=== PATIENT | female | born 1975 | race Caucasian/White ===

== ENCOUNTER → 2022-10-18 15:03 | Outpatient (CLI) | payer MEDICAID, SELFPAY ==
[2022-10-18 12:46] LABS: Basophils % 0.8 % (0.1-2.0); Eosinophils # 0.1 K/mm3 (0.0-0.4); Eosinophils % 2.5 % (0.1-12.0); Hematocrit 45.2 % (37.0-47.0); Hemoglobin 14.4 g/dL (12.2-16.2); Lymphocytes # 0.9 K/mm3 (0.7-4.5); Lymphocytes % 20.4 % (10-50); Mean Corpuscular HGB Conc 31.9 g/dL (31.8-35.4); Mean Corpuscular Hemoglobin 30.4 pg (27.0-31.2); Mean Corpuscular Volume 95.4 fl (81-99); Mean Platelet Volume 8.4 fl (7.4-10.4); Monocytes # 0.3 K/mm3 (0.1-1.0); Monocytes % 5.6 % (1.7-9.3); Neutrophils # 3.2 K/mm3 (1.8-7.8); Neutrophils % 70.8 % (37.0-80.0); Platelet Count 223 K/mm3 (142-424); Red Blood Count 4.74 M/mm3 (4.20-5.40); Red Cell Distribution Width 14.3 % (11.5-17.5); White Blood Count 4.5 K/mm3 (4.8-10.8)
[2022-10-18 13:02] LABS: Alanine Aminotransferase 32 U/L (12-78); Albumin Level 3.9 g/dl (3.5-5.0); Albumin/Globulin Ratio 1.4 (1.1-1.8); Alkaline Phosphatase 80 U/L (38-126); Anion Gap 15.8 mEq/L (5-15); Aspartate Amino Transferase 30 U/L (14-36); Bilirubin,Total 0.3 mg/dl (0.2-1.3); Blood Urea Nitrogen 10 mg/dl (7-17); Carbon Dioxide 23 mmol/L (22.0-30.0); Chloride 107 mmol/L (98-107); Chol/HDL Ratio 2.6 (1-3.5); Cholesterol 181 mg/dl (140-200); Estimated Glomerular Filt Rate 108 ml/min (>60); GFR (African American) 130 ML/MIN (>60); Globulin 2.8 g/dL (1.3-3.2); Glucose 105 mg/dl (74-100); HDL Cholesterol 70 mg/dl (40-60); Potassium 3.8 mmoL/L (3.5-5.1); Sodium 142 mmol/L (136-145); Total Protein,Serum 6.7 g/dl (6.3-8.2); Triglycerides 203 mg/dl (30-150); VLDL Cholesterol 41 mg/dL (0-40)
[2022-10-18 13:12] LABS: Direct LDL Cholesterol 81.19 mg/dL (100-129)
[2022-10-18 13:20] LABS: 25-OH Vitamin D, Total 34.7 ng/mL (30-100)
[2022-10-18 13:21] LABS: T4 (Thyroxine) 6.8 ug/dl (5.53-11.0)
[2022-10-18 13:34] LABS: Thyroid Stimulating Hormone 0.46 uIU/mL (0.465-4.68)
== END ==
PROVIDERS: PCP Emergency Medicine; Visit Provider Emergency Medicine
DX: Z00.00 Encounter for general adult medical examination without abnormal findings (principal); Z79.899 Other long term (current) drug therapy
CPT/HCPCS: 80053; 80061; 82306; 84436; 84443; 85025

== ENCOUNTER → 2023-02-15 19:41 | Outpatient (CLI) | payer MEDICAID, SELFPAY ==
[2023-02-15 20:24] LABS: Amphetamine/Metha Screen,Urine Positive ng/ml (<1000); Barbiturates Screen,Urine Negative ng/ml (<200)
[2023-02-15 20:25] LABS: Cannabinoid Screen,Urine Positive ng/ml (<50)
[2023-02-15 20:26] LABS: Benzodiazepines Screen,Urine Negative ng/ml (<200); Cocaine Screen,Urine Negative ng/ml (<300)
[2023-02-15 20:27] LABS: Methadone Screen,Urine Negative ng/ml (<300); Opiate Screen,Urine Negative ng/ml (<300)
[2023-02-15 20:28] LABS: Phencyclidine Screen,Urine Negative ng/ml (<25)
== END ==
LOC: LAB.DROPOF 19:42
PROVIDERS: PCP Emergency Medicine; Visit Provider Emergency Medicine
DX: Z79.899 Other long term (current) drug therapy (principal)
CPT/HCPCS: 80305

== ENCOUNTER 2023-09-12 15:30 | Outpatient (CLI) | payer MEDICAID, SELFPAY ==
[2023-09-12 18:27] LABS: Basophils % 0.9 % (0.1-2.0); Eosinophils # 0.8 K/mm3 (0.0-0.4); Eosinophils % 15.2 % (0.1-12.0); Hematocrit 37.7 % (37.0-47.0); Hemoglobin 12.2 g/dL (12.2-16.2); Lymphocytes # 1.6 K/mm3 (0.7-4.5); Lymphocytes % 31.8 % (10-50); Mean Corpuscular HGB Conc 32.3 g/dL (31.8-35.4); Mean Corpuscular Hemoglobin 31.8 pg (27.0-31.2); Mean Corpuscular Volume 98.4 fl (81-99); Mean Platelet Volume 8.5 fl (7.4-10.4); Monocytes # 0.3 K/mm3 (0.1-1.0); Monocytes % 6.1 % (1.7-9.3); Neutrophils # 2.3 K/mm3 (1.8-7.8); Platelet Count 210 K/mm3 (142-424); Red Blood Count 3.83 M/mm3 (4.20-5.40); Red Cell Distribution Width 13.4 % (11.5-17.5)
[2023-09-12 18:48] LABS: Alanine Aminotransferase 28 U/L (12-78); Albumin Level 3.6 g/dl (3.5-5.0); Albumin/Globulin Ratio 1.3 (1.1-1.8); Alkaline Phosphatase 64 U/L (38-126); Anion Gap 10.1 mEq/L (5-15); Aspartate Amino Transferase 31 U/L (14-36); Bilirubin,Total 0.4 mg/dl (0.2-1.3); Blood Urea Nitrogen 16 mg/dl (7-17); Calcium 8.9 mg/dl (8.4-10.2); Carbon Dioxide 27 mmol/L (22.0-30.0); Chloride 107 mmol/L (98-107); Chol/HDL Ratio 3.4 (1-3.5); Cholesterol 141 mg/dl (140-200); Estimated Glomerular Filt Rate 108 ml/min (>60); GFR (African American) 130 ML/MIN (>60); Globulin 2.7 g/dL (1.3-3.2); Glucose 78 mg/dl (74-100); HDL Cholesterol 42 mg/dl (40-60); Potassium 4.1 mmoL/L (3.5-5.1); Sodium 140 mmol/L (136-145); Total Protein,Serum 6.3 g/dl (6.3-8.2); Triglycerides 120 mg/dl (30-150); VLDL Cholesterol 24 mg/dL (0-40)
[2023-09-12 18:59] LABS: C-Reactive Protein 2.7 mg/L (0-4); Direct LDL Cholesterol 77.16 mg/dL (100-129)
[2023-09-12 19:00] LABS: Erythrocyte Sedimentation Rate 13 mm/hr (0-20)
[2023-09-12 19:05] LABS: 25-OH Vitamin D, Total 45.5 ng/mL (30-100)
[2023-09-12 19:23] LABS: Thyroid Stimulating Hormone 1.93 uIU/mL (0.465-4.68)
[2023-09-12 19:59] LABS: Folate > 20.00 ng/mL; Vitamin B12 351 pg/mL (239-931)
[2023-09-12 20:04] LABS: Iron 71 ug/dL (37-170)
[2023-09-12 20:21] LABS: Total Iron Binding Capacity 292 ug/dL (265-497)
[2023-09-12 20:41] LABS: Ferritin 12.5 ng/ml (6.24-137)
[2023-09-14 12:18] LABS: HBsAg Screen Negative (Negative); HCV Ab Non Reactive (Non Reactive); HIV Screen 4th Generation wRfx Non Reactive (Non Reactive); Hep A Ab, IGM Negative (Negative); Hep B Core Ab, IgM Negative (Negative)
[2023-09-14 17:53] LABS: Peripheral Smear Review Scanned Result
== END 2023-09-12 23:59 | disposition home or self-care (01) ==
LOC: LAB.DROPOF 09-13 10:25
PROVIDERS: PCP Internal Medicine; Visit Provider Internal Medicine
DX: R53.83 Other fatigue (principal); B34.8 Other viral infections of unspecified site; F19.11 Other psychoactive substance abuse, in remission; R01.1 Cardiac murmur, unspecified; F17.210 Nicotine dependence, cigarettes, uncomplicated; Z11.4 Encounter for screening for human immunodeficiency virus [HIV]; Z79.899 Other long term (current) drug therapy
CPT/HCPCS: 80053; 80061; 80074; 82306; 82607; 82728; 82746; 83540; 83550; 84443; 85025; 85651; 86140; 86703; G0432

== ENCOUNTER 2023-10-09 13:12 | Emergency (ER) | payer MEDICAID, SELFPAY ==
[2023-10-09 13:13] VITALS: BP 92/48; PULSE 76; RESP 16; TEMP 36.7; O2SAT 95; BMI 25.1
[2023-10-09 13:28] LABS: Microscopic, Urine URINE MICROSCOPIC (MICROSCOPIC)
[2023-10-09 13:35] LABS: Appearance,Urine CLOUDY (Clear); Blood, Urine 3+ (Negative); Color,Urine DARK YELLOW (Yellow); Glucose,Urine (UA) Negative (Negative); Ketones,Urine TRACE (Negative); Leukocyte Esterase,Urine 2+ (Negative); Nitrate,Urine Negative (Negative); PH,Urine 6.5 (5.0-8.5); Protein,Urine 3+ (Negative); Specific Gravity, Urine >= 1.030 (1.005-1.030)
[2023-10-09 13:42] LABS: Bilirubin,Urine 1+ (Negative)
[2023-10-09 13:53] LABS: Bacteria,Urine 1+ /lpf; RBC,Urine 20-50 #/hpf (0-3); WBC,Urine TNTC #/hpf (0-3)
--- NOTE | 2023-10-09 14:04 | PC.NURSE ---
Dr. Smith at [facility] for pt eval
--- NOTE | 2023-10-09 14:07 | ED_ITS ---
Discharge Plan Disposition Patient Disposition: Home, Self-Care Prescriptions Prescriptions: New nitrofurantoin monohyd/m-cryst 100 mg capsule 100 mg PO BID 5 Days Qty: 10 0RF Rx Instructions: must administer with a meal/food No Action buspirone 10 mg tablet 10 mg PO TID diclofenac sodium 50 mg tablet,delayed release (DR/EC) 50 mg PO TID PRN magnesium oxide 400 mg magnesium capsule 400 mg PO DAILY mirtazapine 45 mg tablet 45 mg PO HS ropinirole 0.25 mg tablet 0.5 mg PO HS Rx Instructions: administer 1-3 hours before bedtime melatonin 5 mg capsule 5 mg PO PRN thiamine HCl (vitamin B1) 100 mg tablet 100 mg PO DAILY diclofenac sodium 3 % gel 1 applic topical BID Qty: 100 1RF Rx Instructions: apply to Knees q 4 hours PRN pain. bupropion HCl 75 mg tablet 75 mg PO BID 30 Days Qty: 60 2RF bupropion HCl 75 mg tablet 300 mg PO .COMPLEX Rx Instructions: 300 mg orally; Vraylar 3 mg capsule 6 mg PO DAILY cariprazine 6 mg capsule 6 mg PO DAILY Qty: 30 2RF Referrals Follow up/Referrals: Gianfranco Tijerina DO [Primary Care Provider] - See instructions Activity Restrictions/Add. Instructions Additional Instructions/Restrictions: Your symptoms are consistent with an uncomplicated urinary tract infection. Please follow-up with your primary care doctor in 2 to 3 days if you are not improving after antibiotic initiation. The bleeding that you have been experiencing is likely secondary to the inflammatory condition but if you do not improve please follow-up with [facility]. Clinical Impressions Clinical Impression: UTI (urinary tract infection) Instructions Patient Instructions: DI for Urinary Tract Infection (UTI), DI for Urinary Tract Infection in Children Discharge ED Provider: Tommy Smith General Adult HPI General Chief complaint: Urogenital-Female Stated complaint: pain and frequent urination Time Seen by Provider: 10/09/23 14:04 Mode of Arrival: Ambulatory Source of Information: Patient Limitations: No Limitations Description of Symptoms (Recalled from ER Triage Doc. by RN): Patient reports possible UTI. States she has burning and frequent urination for 2 days now. History of Present Illness HPI narrative: Patient is a 47-year-old presents with several days of dysuria and frequency. No back pain no fevers. She has had a little bit of bleeding not sure as to what the location is coming from but she has been off of her period for several years. Denies any pain elsewhere outside of her urethral area upon urination. No other significant past medical history she states. Is allergic to penicillins. Related Data Home Medications Medication Instructions Recorded Confirmed buspirone 10 mg tablet 10 mg PO TID 09/12/23 09/13/23 diclofenac sodium 50 mg 50 mg PO TID PRN 09/12/23 09/13/23 tablet,delayed release magnesium oxide 400 mg PO DAILY 09/12/23 09/13/23 melatonin 5 mg capsule 5 mg PO PRN 09/12/23 09/13/23 mirtazapine 45 mg tablet 45 mg PO HS 09/12/23 09/13/23 ropinirole 0.25 mg tablet 0.5 mg PO HS 09/12/23 09/13/23 thiamine HCl (vitamin B1) 100 mg 100 mg PO DAILY 09/12/23 09/13/23 tablet bupropion HCl 75 mg tablet 300 mg PO .COMPLEX 09/13/23 09/13/23 cariprazine 3 mg capsule (Vraylar) 6 mg PO DAILY 09/13/23 09/13/23 Previous Rx's Medication Instructions Recorded bupropion HCl 75 mg tablet 75 mg PO BID 30 days #60 tabs 09/13/23 cariprazine 6 mg capsule 6 mg PO DAILY #30 caps 09/13/23 diclofenac sodium 3 % topical gel 1 applic topical BID pain #100 09/13/23 grams nitrofurantoin 100 mg PO BID 5 days #10 caps 10/09/23 monohydrate/macrocrystals 100 mg capsule Allergies Allergy/AdvReac Type Severity Reaction Status Date / Time Penicillins Allergy Severe Rash Verified 09/12/23 13:54 [facility] Disclaimer: The information contained in this section may have been updated after the patient was seen, as this information can be updated by other users. Surgical History Hx of section Hx of dilation and curettage Hx of colostomy Family History Mother Thyroid disorder Diabetes Other FHx: mental illness Social History Smoking Status: Current every day smoker tobacco type: cigarettes alcohol intake: current alcohol intake frequency: holidays/special occasions only substance use type: denies use current occupational status: unemployed Travel in the last 8 weeks: None ROS Obtained: Yes All systems reviewed & no additional complaints except as documented Physical Exam General General appearance: alert Respiratory Respiratory exam: Present normal lung sounds bilaterally Cardiovascular Cardiovascular exam: Present regular rate and normal rhythm Abdominal Exam Abdominal exam: Present soft; Absent distention or tenderness Back Exam Back exam: Absent CVA tenderness (R) or CVA tenderness (L) Neurological Exam Neurological exam: Present alert and oriented X3 Medical Decision Making Papi Inquiry Pt receiving controlled substance: No Vital Signs: 10/09/23 13:13 Temperature 98.0 F Temperature Source Oral Pulse Rate [Radial] 76 Respiratory Rate 16 Blood Pressure [Right Arm] 92/48 L Blood Pressure Mean [Right Arm] 62 Blood Pressure Source [Right Arm] Automatic Cuff Blood Pressure Position [Right Arm] Sitting 02 Sat by Pulse Oximetry 95 Oxygen Delivery Method Room Air Lab Data Lab results reviewed: Yes I reviewed the patient's lab results. Lab Results 10/09/23 13:19: Urine Color Dark yellow, Urine Appearance Cloudy, Urine pH 6.5, Ur Specific Amonate >= 1.030, Urine Protein 3+, Urine Glucose (UA) Negative, Urine Ketones Trace, Urine Blood 3+, Urine Nitrate Negative, Urine Bilirubin 1+ A, Urine Urobilinogen 1.0, Ur Leukocyte Esterase 2+ A, Urine RBC 20-50, Urine WBC Tntc, Ur Squamous Epith Cells 3-5, Urine Bacteria 1+ Orders (Tests/Meds): ORDERS Category Date Time Status UA [Urinalysis and Microscopic] Stat Lab 10/09/23 13:19 Completed Urine Culture Stat Micro 10/09/23 13:19 Received Medical Decision Narrative: 47-year-old very benign well-appearing presents today with symptoms consistent with cystitis. She did states she has had some bleeding which is most likely inflammatory in the setting of an infection unlikely to be postmenopausal bleeding but I advised that she follow-up with [facility] if she is not improving after her treatment of her UTI. She does not have any signs or symptoms of sepsis or pyelonephritis. She has no antibiotic allergies a prescription of nitrofurantoin was sent to her pharmacy she was discharged in improved and stable condition with return precautions emphasized. Critical Care Critical Care Time Critical Care Time: No
[2023-10-09 14:10] VITALS: BP 102/78; PULSE 76; RESP 16; TEMP 36.7; O2SAT 95
--- NOTE | 2023-10-11 08:38 | PC.NURSE ---
urine prelim discussed with , continue macrobid until final is resulted
--- NOTE | 2023-10-15 10:31 | PC.NURSE ---
DISCUSSED URINE CULTURE WITH DR DAVID, MEDICATION CHANGED. RX SENT TO [facility], ATTEMPTED TO REACH PT. UNABLE TO LEAVE VOICEMAILS
== END 2023-10-09 14:12 | disposition home or self-care (01) ==
PROVIDERS: Emergency Provider Student in an Organized Health Care Education/Training Program; PCP Internal Medicine
DX: N39.0 Urinary tract infection, site not specified (principal); B95.7 Other staphylococcus as the cause of diseases classified elsewhere; R30.0 Dysuria; R35.0 Frequency of micturition; F17.210 Nicotine dependence, cigarettes, uncomplicated
CPT/HCPCS: 81001; 87086; 87088; 87186; 99283